=== PATIENT | male | born 1980 | race Two or more races ===

== ENCOUNTER 2019-12-18 12:25 | Emergency (ER) | payer OTHER ==
[~2019-12-18] VITALS: Ht 188 cm; Wt 96.2 kg
--- NOTE | 2019-12-18 12:25 | NUR ---
MERNA RA 61 From Home on/off cough x1mo Worse last night-Got SOB. +Fever/chills. Actively coughing. Masked. Was transported w/O2 at 4l/min. Made aware of plan of care
[2019-12-18] MEDS ORDERED: ACETAMINOPHEN ES 500 MG TABLET ONE (12:42)
[2019-12-18 12:50] LABS: BASOPHILS % (AUTO) 0.4 % (0.0-2.0); EOSINOPHILS % (AUTO) 1.7 % (0.0-6.0); HEMATOCRIT 49 % (39-51); HEMOGLOBIN 16.8 g/dL (13.5-17.5); LYMPHOCYTES % (AUTO) 21.2 % (20.0-44.0); MEAN CORPUSCULAR HGB CONC 34 g/dl (31.0-36.0); MEAN CORPUSCULAR VOLUME 92 fL (80-96); MONOCYTES # (AUTO) 0.5 /CMM (0.1-1.30); MONOCYTES % (AUTO) 5.6 % (2.0-12.0); NEUTROPHILS # (AUTO) 6.5 /CMM (1.8-8.9); NEUTROPHILS % (AUTO) 71.1 % (43.0-81.0); PLATELET COUNT (AUTO) 208 /CMM (150-450); RED BLOOD CELL COUNT(AUTO) 5.39 MIL/uL (4.5-6.0); WHITE BLOOD COUNT (AUTO) 9.2 K/uL (4.3-11.0)
[2019-12-18 12:57] LABS: CALCIUM, SERUM 9.3 mg/dL (8.5-10.1); CARBON DIOXIDE 29 mmol/L (21-32); CHLORIDE 104 mmol/L (98-107); CREATININE 0.9 mg/dL (0.6-1.3); GLUCOSE 90 mg/dL (74-106); SODIUM SERUM 142 mmol/L (136-145); UREA NITROGEN, BLOOD 11 mg/dL (7-18)
[2019-12-18] MEDS ORDERED: ACETAMINOPHEN ES 500 MG TABLET PO ONE (13:00)
[2019-12-18 13:10] LABS: ALANINE AMINOTRANSFERASE 25 U/L (12-78); ALKALINE PHOSPHATASE 56 U/L (46-116); ASPARTATE AMINOTRANSFERASE 16 U/L (15-37); B-TYPE NATRIURETIC PEPTIDE 10 PG/ML (0-125); BILIRUBIN,TOTAL 0.5 mg/dL (0.2-1.0); TOTAL PROTEIN, SERUM 7.4 g/dL (6.4-8.2)
--- NOTE | 2019-12-18 13:10 | NUR ---
XRAY AT BEDSIDE
[2019-12-18] MEDS ORDERED: predniSONE 20 MG TABLET ONE (13:44)
[2019-12-18 13:46] LABS: CREATINE KINASE, TOTAL 166 U/L (39-308); FERRITIN 214 ng/mL (8-388)
[2019-12-18 13:52] LABS: C-REACTIVE PROTEIN < 0.2 mg/dL (0.0-0.9)
[2019-12-18] MEDS ORDERED: ALBUTEROL SULFATE INH 18 GM HFA.AER.AD IH PRN (14:00)
[2019-12-18] MEDS ORDERED: predniSONE 20 MG TABLET PO ONE (14:00)
[2019-12-18] MEDS ORDERED: IV NS 0.9% 1,000 ML BAG IV ONE (14:00)
--- NOTE | 2019-12-18 14:47 | NUR ---
Patient discharged to home in stable condition. Written and verbal after care instructions given. Patient verbalizes understanding of instruction.IV removed. Catheter intact and site benign. Pressure and 4x4 applied to site. No bleeding noted. Pt ambulatory with a steady gait
[2019-12-18 14:48] VITALS: BP 131/76
== END 2019-12-18 14:48 | disposition home or self-care (01) ==
LOC: ER 12:29
DX: J45.909 Unspecified asthma, uncomplicated (principal); R50.9 Fever, unspecified; R09.02 Hypoxemia; F17.200 Nicotine dependence, unspecified, uncomplicated; Z20.828 Contact with and (suspected) exposure to other viral communicable diseases
CPT/HCPCS: 36415; 71045; 80053; 82550; 82728; 83605; 83615; 83880; 84145; 84484; 85025; 85730; 86140; 87040 ×2; 87635; 87804; 99284; J7512